=== PATIENT | female | born 1960 | race Asian ===

== ENCOUNTER 2023-05-27 06:06 | Day surgery (SDC) | payer OTHER ==
[~2023-05-27] VITALS: Ht 152.4 cm; Wt 50.0 kg
[2023-05-27] MEDS ORDERED: LIDOCAINE 4% 50 ML SOLUTION TP ONE (06:07)
[2023-05-27] MEDS ORDERED: LIDOCAINE 2% 11 ML JELLY TP ONE (06:07)
[2023-05-27] MEDS ORDERED: BENZOCAINE 20% 50 MCG/SPRAY 57 GM TP ONE (06:07)
[2023-05-27] MEDS ORDERED: SODIUM CHLORIDE 0.9% 1,000 ML IV ONE (07:00)
[2023-05-27] MEDS ORDERED: SODIUM CHLORIDE 0.9% 1,000 ML ONE (07:37)
[2023-05-27] MEDS ORDERED: MIDAZOLAM HCL 2 MG/2 ML VIAL ONE (08:23)
[2023-05-27] MEDS ORDERED: FentaNYL CITRATE PF 100 MCG/2 ML VIAL ONE (08:24)
[2023-05-27 09:51] VITALS: PULSE 66; RESP 17; O2SAT 100
[2023-05-27] MEDS ORDERED: MethylPREDNISolone SOD SUCC 125 MG/2 ML VIAL ONE (10:02)
[2023-05-27] MEDS ORDERED: MethylPREDNISolone SOD SUCC 125 MG/2 ML VIAL IVP ONE (10:45)
== END 2023-05-27 12:05 | disposition home or self-care (01) ==
LOC: SURGERY 06:06
PROVIDERS: ATTEND Internal Medicine Critical Care Medicine
DX: J38.4 Edema of larynx (principal); B37.0 Candidal stomatitis; Z87.11 Personal history of peptic ulcer disease; Z79.899 Other long term (current) drug therapy; Z98.890 Other specified postprocedural states
CPT/HCPCS: 31623; 88112; 87206; 87101; 87220; 87070; 31624; 71045; 87015; J3010; J2250; J2930; Q9967; J7030; Z7610